=== PATIENT | male | born 1965 | race Hispanic/Latino ===

== ENCOUNTER 2020-03-22 11:55 | Inpatient (IN) | payer OTHER ==
[2020-03-22] MEDS ORDERED: FENTANYL CITR 100 MCG/2 ML ONE (15:41)
[2020-03-22] MEDS ORDERED: NA CHLORIDE 0.9% 1,000 ML ONE (15:41)
[2020-03-22 16:20] LABS: Absolute Lymphocytes (CBC) 1.1 K/uL (0.7-4.9); Basophils % 0.3 % (0-1.3); Hematocrit 44.2 % (39.6-49.0); Lymphocytes % 6.1 % (15.3-44.8); MPV 8.4 fL (7.6-11.3); RBC Red Blood Cell Count 4.98 M/uL (4.33-5.43)
[2020-03-22 16:32] LABS: BUN Blood Urea Nitrogen 11 mg/dL (7-18); Bicarbonate 27 mmol/L (21-32); Glucose Level 116 mg/dL (74-106); Potassium 4.1 mmol/L (3.5-5.1); Sodium Level 136 mmol/L (136-145)
--- NOTE | 2020-03-22 17:05 | RAD REPORT ---
EXAM DESCRIPTION: CT - Pelvis W/Cont - 03/22/2020 4:26 pm CLINICAL HISTORY: ABSCESS Rectal pain and swelling. COMPARISON: No comparisons TECHNIQUE: All CT scans are performed using dose optimization technique as appropriate and may inclu de automated exposure control or mA/KV adjustment according to patient size. FINDINGS: There is moderate inflammatory changes seen surrounding the rectum. Mild wall thickening a lso seen. Perirectal abscess is noted measuring 4.6 x 3.5 cm. This perirectal abscess is not seen to extend into the pelvic content. No bulky pelvic adenopathy, fr ee fluid collections or intrapelvic abscess. Bilateral hip arthroplasties. The appendix is normal. IMPRESSION: 4.6 x 3.5 cm perirectal abscess.
[2020-03-22] MEDS ORDERED: CLINDAMYCIN 600MG/D5W 600 MG/50 ML BAG IV ONE (17:44)
[2020-03-22] MEDS ORDERED: BUPIVACA 0.25%/EPI 0.0005%/PF 30 ML VIAL ONE (19:19)
[2020-03-22] MEDS ORDERED: Ringers Lactate 1,000 ML IV ONE (19:34)
[2020-03-22] MEDS ORDERED: PIPER/TAZO/NS 3.375gm 3.375 GM/100 ML BAG ONE (19:35)
[2020-03-22] MEDS ORDERED: MORPHINE 2 MG/ML SYR IV PRN ×2 (19:46→19:50)
[2020-03-22] MEDS ORDERED: ONDANSETRON 4 MG/2 ML VIAL IV PRN (19:46)
[2020-03-22] MEDS ORDERED: METRONIDAZOLE 500mg IVPB 500 MG/100 ML BAG IV ONE (19:49)
[2020-03-22] MEDS ORDERED: Levofloxacin500mg IV 500 MG/100 ML BAG IV ONE (19:49)
[2020-03-22] MEDS: NA CHLORIDE 0.9% 1,000 ML IV SCH (20:00)
[2020-03-22] MEDS: Levofloxacin500mg IV 500 MG/100 ML BAG IV SCH (20:00)
--- NOTE | 2020-03-22 20:27 | P.OP ---
Preoperative diagnosis: Perirectal abscess Postoperative diagnosis: Perirectal abscess Primary procedure: Exam under anesthesia Secondary procedure: Incision and drainage of perirectal abscess Anesthesia: GETA + Local Estimated blood loss: <20cc Specimen: Cultures Findings: Multilocluated 5cm abscess Complications: None Drain(s): Other (iodoform packing 1/2") Transferred to: Recovery Room Condition: Good
--- NOTE | 2020-03-22 21:17 | P.HP ---
Certification for Inpatient Patient admitted to: Inpatient With expected LOS: >2 Midnights Patient will require the following post-hospital care: None Practitioner: I am a practitioner with admitting privileges, knowledge of patient current condition, hospital course, and medical plan of care. Services: Services provided to patient in accordance with Admission requirements found in Title 42 Section 412.3 of the Code of Federal Regulations Patient History Date of Service: 03/22/20 Reason for admission: Rectal abscess History of Present Illness: Patient is a 54-year-old gentleman who came to the hospital with rectal pain. Patient was at the emergency room at [facility] for rectal pain, but patient's CT of the abdomen did not reveal any abnormality. However, patient's pain was not improving. Patient came to our ER and CT abdomen and pelvis revealed rectal abscess. Patient was taken to the OR by General surgery for incision and debridement of the abscess. Patient will need stool softener and IV antibiotic therapy. Will monitor blood pressure closely. Patient be admitted to our service for close evaluation. Allergies Penicillins Allergy (Intermediate, Verified 09/02/12 05:17) Rash Home Medications: Valsartan [Diovan] 320 mg PO DAILY 03/23/20 - Past Medical/Surgical History -: Hypertension -: Bilateral hip replacement - Family History Father Family History: Reviewed- Non-Contributory - Social History Smoking Status: Never smoker Alcohol use: No CD- Drugs: No Review of Systems 10-point ROS is otherwise unremarkable Physical Examination - Vital Signs Temperature: 99.5 F Blood Pressure: 116/59 Pulse: 85 Respirations: 19 Pulse Ox (%): 96 - Physical Exam General: Alert, In no apparent distress, Oriented x3 HEENT: Atraumatic, PERRLA, Mucous membr. moist/pink, EOMI, Sclerae nonicteric Neck: Supple, 2+ carotid pulse no bruit, No LAD, Without JVD or thyroid abnormality Respiratory: Clear to auscultation bilaterally, Normal air movement Cardiovascular: Regular rate/rhythm, Normal S1 S2, No murmurs Gastrointestinal: Normal bowel sounds, Soft and benign, Non-distended, No tenderness Musculoskeletal: No clubbing, No swelling, No tenderness Integumentary: No rashes Neurological: Normal gait, Normal speech, Normal strength at 5/5 x4 extr, Normal tone, Sensation intact, Cranial nerves 3-12 intact, Normal affect Lymphatics: No axilla or inguinal lymphadenopathy - Studies Laboratory Data (last 24 hrs) 03/22/20 15:46: Sodium 136, Potassium 4.1, BUN 11, Creatinine 0.86, Glucose 116 H 03/22/20 15:46: WBC 17.2 H, Hgb 14.9, Hct 44.2, Plt Count 255 Assessment & Plan - Problems (Diagnosis) (1) Rectal abscess Current Visit: Yes Status: Acute - Plan 1. Continue with IV hydration 2. Continue with IV antibiotics 3. Continue with pain control 4. NPO 5. General surgery consultation; patient to go to the operating room tonight for incision and debridement 6. Serial H&H, and we will monitor CBC, BMP, LFTs and lipase along with electrolytes. 7. GI and DVT prophylaxis Discharge Plan: Home Plan to discharge in: Greater than 2 days - Advance Directives Does patient have a Living Will: No Does patient have a Durable POA for Healthcare: No - Code Status/Comfort Care Code Status Assessed: Yes Code Status: Full Code Critical Care: No Time Spent Managing PTS Care (In Minutes): 45
[2020-03-22] MEDS: ACETAMINOPHEN 500 MG TAB PO PRN (22:14)
--- NOTE | 2020-03-22 23:37 | OP ---
Date of Procedure: 03/22/2020 Surgeon: Maverick Medina MD, Preoperative Diagnosis: Perirectal abscess. Postoperative Diagnosis: Perirectal abscess. Procedure Performed: 1.Exam under anesthesia. 2.Incision and drainage of perirectal abscess. Anesthesia: General endotracheal plus local. Estimated Blood Loss: Less than 20 mL. Specimen: Cultures. Findings: Multiloculated approximately 5 cm abscess in the posterior position. No communication to rectum appreciated. Complications: None. Drains: Half-inch iodoform packing placed. Disposition: Transferred to recovery room in good condition. Procedure In Detail: After informed consent was obtained, patient was brought to the operating room, prepped and draped in the usual sterile fashion in lithotomy position. After adequate anesthesia wa s achieved, I anesthetized the area of the posterior anal tissue extending in a radial direction off midline to the patient's left eye. I made an incision over this area and immediately encountered a l arge abscess. This was cultured for both aerobic and anaerobic speciation. It was found to be multi loculated on digital examination. A large volume amount of purulent material emanated from this and the abscess obviously tracked for approximately 5 cm superiorly along the rectal margin without any o bvious communication. After this was completely opened and irrigated, I inspected the rectal vault w ith rigid anoscopy using sequentially larger anal endoscopes. There was no communication evident thr oughout the procedure. I irrigated the rectal area and placed a piece of sterile Gel-Foam into the a nal canal. I then returned back to irrigate and inspect the incision and drainage site of the perire ctal abscess after it was noted to be completely cleaned and all abscess material was drained. Necro tic tissue was all removed. The wound was then packed with half-inch iodoform packing. A sterile dr essing was placed over top. Patient tolerated the procedure well without evidence of complication, t ransferred to PACU in good condition. All counts were correct at the end of the case. CHUNG/DURAN Voice ID: [id number] Report ID: [id number]
[2020-03-23 00:15] VITALS: BMI 33.6
[2020-03-23] MEDS: METRONIDAZOLE 500mg IVPB 500 MG/100 ML BAG IV SCH ×5 (00:15→23:52)
[2020-03-23] MEDS: NA CHLORIDE 0.9% 1,000 ML IV SCH ×3 (00:15→22:40)
--- NOTE | 2020-03-23 03:36 | ER ---
Nurse's Notes [facility] Name: Castillo Mccoy Age: 54 yrs Sex: Male : 1965 Arrival Date: 03/22/2020 Time: 11:58 Bed 28 Private MD: Diagnosis: Abscess of anal and rectal regions Presentation: 03/22 12:30 Chief complaint: Chief complaint: Patient states: Rectal pain x 1 week, went to [place] [id number] on Friday and they did an exam and CT, both were negative. Taking a shower today and I felt a bump on the left side of the rectum, Dr. Lopez said to come to the ER. Coronavirus screen: Proceed with normal triage. Patient denies a cough. Patient denies shortness of breath or difficulty breathing. Patient denies measured and/or subjective temperature greater than 100.4F prior to today's visit. Patient denies travel on a cruise ship or to a country the [facility] currently lists as an affected area. Patient denies contact with known and/or suspected case of COVID-19. Ebola Screen: No symptoms or risks identified at this time. Initial Sepsis Screen: Does the patient meet any 2 criteria? No. Patient's initial sepsis screen is negative. Does the patient have a suspected source of infection? No. Patient's initial sepsis screen is negative. Risk Assessment: Do you want to hurt yourself or someone else? Patient reports no desire to harm self or others. Onset of symptoms was March 17, 2020. Care prior to arrival: None. 12:30 Method Of Arrival: Ambulatory [facility] 12:30 Acuity: MIGUEL ANGEL 4 jl7 15:20 Acuity: MIGUEL ANGEL 3 Triage Assessment: 12:36 General: Appears in no apparent distress. uncomfortable, Behavior is calm, cooperative, jl7 appropriate for age. Pain: Complains of pain in gluteal cleft Pain currently is 8 out of 10 on a pain scale. Neuro: Level of Consciousness is awake, alert, obeys commands, Oriented to person, place, time, situation. Cardiovascular: Respiratory: Airway is patent Respiratory effort is even, unlabored, Respiratory pattern is regular, symmetrical. Derm: Skin is pink, warm \T\ dry. Reports possible abscess to left side of rectum. Historical: - Allergies: 12:36 PENICILLINS; jl7 - Home Meds: 12:36 valsartan 320 mg oral tab 1 tab once daily [Active]; jl7 - PMHx: 12:36 Hypertension; jl7 - PSHx: 12:36 Bilateral Hip replacement; right knee; jl7 - Immunization history:: Adult Immunizations not up to date. - Social history:: Smoking status: Patient reports the use of cigarette tobacco products, smokes one-half pack cigarettes per day. Screenin:00 Abuse screen: Denies threats or abuse. Denies injuries from another. Nutritional ls4 screening: No deficits noted. Tuberculosis screening: No symptoms or risk factors identified. Fall Risk None identified. Assessment: 15:00 Reassessment: Patient appears in no apparent distress at this time. Patient and/or ls4 family updated on plan of care and expected duration. Pain level reassessed. Patient is alert, oriented x 3, equal unlabored respirations, skin warm/dry/pink. 16:00 Reassessment: Patient appears in no apparent distress at this time. Patient and/or ls4 family updated on plan of care and expected duration. Pain level reassessed. Patient is alert, oriented x 3, equal unlabored respirations, skin warm/dry/pink. 17:00 Reassessment: Patient appears in no apparent distress at this time. Patient and/or ls4 family updated on plan of care and expected duration. Pain level reassessed. Patient is alert, oriented x 3, equal unlabored respirations, skin warm/dry/pink. Vital Signs: 12:30 BP 155 / 86; Pulse 104; Resp 17; Temp 98.9; Pulse Ox 100% ; Weight 108.86 kg; Pain 8/10;jl7 15:00 BP 138 / 77; Pulse 96; Resp 19; Temp 98.4(O); Pulse Ox 99% on R/A; Pain 3/10; ls4 16:00 BP 134 / 87; Pulse 98; Resp 17; Pulse Ox 99% on R/A; Pain 3/10; ls4 17:00 BP 139 / 86; Pulse 96; Resp 18; Pulse Ox 100% on R/A; Pain 3/10; ls4 ED Course: 11:58 Patient arrived in ED. ag5 12:35 Triage completed. jl7 12:36 Arm band placed on right wrist. jl7 14:00 No provider procedures requiring assistance completed. Patient maintains SpO2 ls4 saturation greater than 95% on room air. 14:36 Radha Gonzalez F[facility]-C [facility]. snw 14:36 Marcos Chavarria MD is Attending Physician. snw 14:40 Bita Jimenez, ELIANA is Primary Nurse. iw 15:29 Patient has correct armband on for positive identification. Bed in low position. Call mh5 light in reach. Warm blanket given. Pillow given. clinical research monitor on. Pulse ox on. NIBP on. 15:46 Initial lab(s) drawn, by me, sent to lab. First set of blood cultures drawn By , RAC. lt1 15:51 Warm blanket given. Pillow given. FOOT BOOTIES. mh5 15:53 Second set of blood cultures drawn By NIGEL monroe. lt1 15:55 Inserted saline lock: 20 gauge in right antecubital area, using aseptic technique. lt1 16:26 Pelvis W/Cont In Process Unspecified. EDMS 18:41 Maverick Medina MD is Hospitalizing Provider. snw 18:57 Brunilda Canales MD is Hospitalizing Provider. snw 20:21 Patient admitted, IV remains in place. ls4 Administered Medications: 15:45 Drug: fentaNYL (PF) 50 mcg Route: IVP; Site: right antecubital; ls4 16:15 Follow up: Response: No adverse reaction; Marked relief of symptoms ls4 15:49 Drug: NS 0.9% 1000 ml Route: IV; Rate: 125 ml/hr; Site: right antecubital; ls4 17:46 Drug: Clindamycin 600 mg Route: IVPB; Infused Over: 30 mins; Site: right antecubital; ls4 18:40 Follow up: Response: No adverse reaction; IV Status: Completed infusion; IV Intake: [id number] 19:36 Drug: Lactated Ringers Solution 1000 ml {Note: Telephone order,Dr Medina, repeated ls4 back and clarified. .} Route: IV; Rate: 150 ml/hr; Site: right antecubital; 20:20 Follow up: IV Status: Infusion continued upon admission ls4 19:40 CANCELLED (pt allergic): Zosyn 3.375 grams IVPB once over 60 mins; (mix in NS 100 mL) snw Intake: 18:40 IV: 50ml; Total: 50ml. ls4 Outcome: 18:42 Decision to Hospitalize by Provider. snw 20:20 Admitted to OR accompanied by nurse, accompanied by tech, via wheelchair, with chart, ls4 Report called to verbal report and sbar given to OR Nurse. 20:20 Condition: stable 20:20 Instructed on the need for admit, Demonstrated understanding of instructions, follow-up care, medications. 20:22 Patient left the ED. ls4 Signatures: Dispatcher [employer] EDKS Radha Gonzalez, JHONY-C REVENUE FIELD AGENT-Csnw Bita Jimenez, RN Bia Montanez 5 Pooja Sotelo RN RN jl7 Jennifer Jiménez RN RN ls4 Ida Harrington 5 Rupal Villarreal lt1 Corrections: (The following items were deleted from the chart) 19:38 19:35 Zosyn 3.375 grams IVPB in right antecubital over 60 mins ls4 ls4
--- NOTE | 2020-03-23 03:36 | EDPHYS ---
Physician Documentation [facility] Name: Castillo Mccoy Age: 54 yrs Sex: Male : 1965 Arrival Date: 03/22/2020 Time: 11:58 Bed 28 Private MD: ED Physician Marcos Chavarria HPI: 03/22 15:26 This 54 yrs old Male presents to ER via Ambulatory with complaints of Rectal snw Pain. 15:26 The patient presents to the emergency department with pain in the rectal area, that is snw severe. Onset: The symptoms/episode began/occurred 4 day(s) ago, and became persistent. Context: the patient has no known special context relating to the rectal area complaint(s). Associate signs and symptoms: The patient has no apparent associated signs or symptoms. The patient has not experienced similar symptoms in the past. The patient has been recently seen by a physician: Imelda, CT abdomen done, exam performed, no dx, called Dr. Lopez who looked at CT and told pt it was not his colon. Pt states he has been taking Flagyl, using Tucks, using Suppositories for inflammation and continues to have extreme pain. Historical: - Allergies: 12:36 PENICILLINS; jl7 - Home Meds: 12:36 valsartan 320 mg oral tab 1 tab once daily [Active]; jl7 - PMHx: 12:36 Hypertension; jl7 - PSHx: 12:36 Bilateral Hip replacement; right knee; jl7 - Immunization history:: Adult Immunizations not up to date. - Social history:: Smoking status: Patient reports the use of cigarette tobacco products, smokes one-half pack cigarettes per day. ROS: 15:26 Constitutional: Negative for fever, chills, and weight loss, Eyes: Negative for injury, snw pain, redness, and discharge, ENT: Negative for injury, pain, and discharge, Neck: Negative for injury, pain, and swelling, Cardiovascular: Negative for chest pain, palpitations, and edema, Respiratory: Negative for shortness of breath, cough, wheezing, and pleuritic chest pain, Abdomen/GI: Negative for abdominal pain, nausea, vomiting, diarrhea, and constipation, severe rectal pain Back: Negative for injury and pain, : Negative for injury, bleeding, discharge, and swelling, MS/Extremity: Negative for injury and deformity, Skin: Negative for injury, rash, and discoloration, Neuro: Negative for headache, weakness, numbness, tingling, and seizure. Exam: 15:25 Constitutional: This is a well developed, well nourished patient who is awake, alert, snw and in no acute distress. Head/Face: Normocephalic, atraumatic. Eyes: Pupils equal round and reactive to light, extra-ocular motions intact. Lids and lashes normal. Conjunctiva and sclera are non-icteric and not injected. Cornea within normal limits. Periorbital areas with no swelling, redness, or edema. ENT: Nares patent. No nasal discharge, no septal abnormalities noted. Tympanic membranes are normal and external auditory canals are clear. Oropharynx with no redness, swelling, or masses, exudates, or evidence of obstruction, uvula midline. Mucous membranes moist. Neck: Trachea midline, no thyromegaly or masses palpated, and no cervical lymphadenopathy. Supple, full range of motion without nuchal rigidity, or vertebral point tenderness. No Meningismus. Chest/axilla: Normal chest wall appearance and motion. Nontender with no deformity. No lesions are appreciated. Cardiovascular: Regular rate and rhythm with a normal S1 and S2. No gallops, murmurs, or rubs. Normal PMI, no JVD. No pulse deficits. Respiratory: Lungs have equal breath sounds bilaterally, clear to auscultation and percussion. No rales, rhonchi or wheezes noted. No increased work of breathing, no retractions or nasal flaring. Abdomen/GI: Soft, non-tender, with normal bowel sounds. No distension or tympany. No guarding or rebound. No evidence of tenderness throughout. left significant perirectal tenderness, guaiac negative Back: No spinal tenderness. No costovertebral tenderness. Full range of motion. Skin: Warm, dry with normal turgor. Normal color with no rashes, no lesions, and no evidence of cellulitis. MS/ Extremity: Pulses equal, no cyanosis. Neurovascular intact. Full, normal range of motion. Neuro: Awake and alert, GCS 15, oriented to person, place, time, and situation. Cranial nerves II-XII grossly intact. Motor strength 5/5 in all extremities. Sensory grossly intact. Cerebellar exam normal. Normal gait. Psych: Awake, alert, with orientation to person, place and time. Behavior, mood, and affect are within normal limits. Vital Signs: 12:30 BP 155 / 86; Pulse 104; Resp 17; Temp 98.9; Pulse Ox 100% ; Weight 108.86 kg; Pain 8/10;jl7 15:00 BP 138 / 77; Pulse 96; Resp 19; Temp 98.4(O); Pulse Ox 99% on R/A; Pain 3/10; ls4 16:00 BP 134 / 87; Pulse 98; Resp 17; Pulse Ox 99% on R/A; Pain 3/10; ls4 17:00 BP 139 / 86; Pulse 96; Resp 18; Pulse Ox 100% on R/A; Pain 3/10; ls4 MDM: 14:40 Patient medically screened. snw 17:20 Differential diagnosis: hemorrhoids, fissure, abscess. Data reviewed: vital signs, snw nurses notes. Data interpreted: Pulse oximetry: on room air is 100 %. Interpretation: normal. Counseling: I had a detailed discussion with the patient and/or guardian regarding: the historical points, exam findings, and any diagnostic results supporting the discharge/admit diagnosis, the presence of at least one elevated blood pressure reading (>120/80) during this emergency department visit, lab results, radiology results, the need for further work-up and treatment in the hospital. Physician consultation: Maverick Medina MD was called at 17:20, regarding admission, patient's condition. 18:57 Physician consultation: Brunilda Canales MD was called at 18:58, was contacted at 18:58, snw regarding admission, to the medical/surgical unit. 03/22 15:17 Order name: CBC with Diff snw 03/22 15:17 Order name: Chem 7 snw 03/22 15:17 Order name: Blood Culture Adult (2) snw 03/22 15:17 Order name: ESR snw 03/22 16:12 Order name: Basic Metabolic Panel; Complete Time: 16:37 EDMS 03/22 16:12 Order name: CBC with Automated Diff; Complete Time: 16:51 EDMS 03/22 15:17 Order name: CT Pelvis w cont snw 03/22 16:09 Order name: Pelvis W/Cont; Complete Time: 17:18 EDMS 03/22 16:12 Order name: Sedimentation Rate, Berniceren; Complete Time: 16:51 EDDC 03/22 16:12 Order name: Blood Culture [facility] 03/22 16:17 Order name: Blood Culture [facility] 03/22 18:10 Order name: Chest Single View XRAY [facility] 03/22 17:43 Order name: NPO; Complete Time: 17:46 snw 03/22 18:10 Order name: EKG; Complete Time: 03:54 snw 03/22 18:10 Order name: EKG - Nurse/Tech; Complete Time: 18:40 snw Administered Medications: 15:45 Drug: fentaNYL (PF) 50 mcg Route: IVP; Site: right antecubital; ls4 16:15 Follow up: Response: No adverse reaction; Marked relief of symptoms ls4 15:49 Drug: NS 0.9% 1000 ml Route: IV; Rate: 125 ml/hr; Site: right antecubital; ls4 17:46 Drug: Clindamycin 600 mg Route: IVPB; Infused Over: 30 mins; Site: right antecubital; ls4 18:40 Follow up: Response: No adverse reaction; IV Status: Completed infusion; IV Intake: [id number] 19:36 Drug: Lactated Ringers Solution 1000 ml {Note: Telephone order,Dr Medina, repeated ls4 back and clarified. .} Route: IV; Rate: 150 ml/hr; Site: right antecubital; 20:20 Follow up: IV Status: Infusion continued upon admission ls4 19:40 CANCELLED (pt allergic): Zosyn 3.375 grams IVPB once over 60 mins; (mix in NS 100 mL) snw Disposition: 03/23 08:19 Co-signature as Attending Physician, aMrcos Chavarria MD I agree with the assessment and kdr plan of care. Disposition: 03/22/20 18:42 Hospitalization ordered by Brunilda Canales for Inpatient Admission. Preliminary diagnosis is Abscess of anal and rectal regions. - Bed requested for Operating Room. - Status is Inpatient Admission. ls4 - Condition is Stable. - Problem is an acute exacerbation. - Symptoms have worsened. Signatures: Dispatcher [employer] Marcos Flores MD MD kdr Therrien, Shelly, CAR REPAIRER PULLMAN-C CAR REPAIRER PULLMAN-Csnw Pooja Sotelo RN RN jl7 Jennifer Jiménez, RN RN ls4 Corrections: (The following items were deleted from the chart) 03/22 16:11 16:09 Pelvis W/Cont ordered. EDMS EDMS 18:57 18:42 Hospitalization Ordered by Maverick Medina MD for Inpatient Admission. Preliminary snw diagnosis is Abscess of anal and rectal regions. Bed requested for Operating Room. Status is Inpatient Admission. Condition is Stable. Problem is an acute exacerbation. Symptoms have worsened. snw 19:40 19:34 Zosyn 3.375 grams IVPB once over 60 mins; (mix in NS 100 mL) ordered. ls4 snw 19:40 19:35 Zosyn 3.375 grams IVPB once over 60 mins; (mix in NS 100 mL) given. ls4 snw 19:40 19:38 Zosyn 3.375 grams IVPB once over 60 mins; (mix in NS 100 mL) ordered. ls4 snw 20:22 18:57 03/22/2020 18:42 Hospitalization Ordered by Brunilda Canales MD for Inpatient ls4 Admission. Preliminary diagnosis is Abscess of anal and rectal regions. Bed requested for Operating Room. Status is Inpatient Admission. Condition is Stable. Problem is an acute exacerbation. Symptoms have worsened. snw
[2020-03-23 04:27] LABS: Absolute Lymphocytes (CBC) 1.7 K/uL (0.7-4.9); Basophils % 0.2 % (0-1.3); Hematocrit 40.3 % (39.6-49.0); Lymphocytes % 10.3 % (15.3-44.8); MPV 8.5 fL (7.6-11.3); RBC Red Blood Cell Count 4.52 M/uL (4.33-5.43)
[2020-03-23 04:48] LABS: Protime INR 1.31
[2020-03-23 05:01] LABS: Bilirubin Total 0.5 mg/dL (0.2-1.0); Potassium 3.7 mmol/L (3.5-5.1); Protein, Total 6.5 g/dL (6.4-8.2)
[2020-03-23] MEDS ORDERED: MORPHINE 4 MG/ML SYR IV PRN (07:58)
--- NOTE | 2020-03-23 08:19 | P.PN ---
Subjective Date of Service: 03/23/20 Subjective: Improving (Patient doing well. Willing to go home over the next 24- 48 hr. Will discuss with General surgery.) Review of Systems 10-point ROS is otherwise unremarkable Physical Examination - Vital Signs Temperature: 99.5 F Blood Pressure: 116/59 Pulse: 85 Respirations: 19 Pulse Ox (%): 96 - Physical Exam General: Alert, In no apparent distress, Oriented x3 Respiratory: Clear to auscultation bilaterally, Normal air movement Cardiovascular: Regular rate/rhythm, Normal S1 S2, No murmurs Gastrointestinal: Normal bowel sounds, Soft and benign, Non-distended, No te nderness Musculoskeletal: No clubbing, No swelling, No tenderness Integumentary: No rashes - Studies Laboratory Data (last 24 hrs) 03/22/20 15:46: Sodium 136, Potassium 4.1, BUN 11, Creatinine 0.86, Glucose 116 H 03/22/20 15:46: WBC 17.2 H, Hgb 14.9, Hct 44.2, Plt Count 255 03/22/20 15:17: Sodium Cancelled, Potassium Cancelled, BUN Cancelled, Creatinine Cancelled, Glucose Cancelled 03/22/20 15:17: WBC Cancelled, Hgb Cancelled, Hct Cancelled, Plt Count Cancelled Medications List Reviewed: Yes Assessment & Plan - Problems (Diagnosis) (1) Rectal abscess Current Visit: Yes Status: Acute - Plan 1. Continue with IV hydration 2. Continue with IV antibiotics 3. Continue with pain control 4. NPO 5. General surgery consultation; patient to go to the operating room tonight for incision and debridement 6. Serial H&H, and we will monitor CBC, BMP, LFTs and lipase along with electrolytes. 7. GI and DVT prophylaxis Discharge Plan: Home Plan to discharge in: 48 Hours - Advance Directives Does patient have a Living Will: No Does patient have a Durable POA for Healthcare: No - Code Status/Comfort Care Code Status: Full Code Critical Care: No Time Spent Managing PTS Care (In Minutes): 35
[2020-03-23] MEDS: DOCUSATE NA 100 MG CAP PO SCH ×2 (08:47→20:48)
--- NOTE | 2020-03-23 10:53 | P.PN ---
Subjective Date of Service: 03/23/20 Primary Care Provider: None Chief Complaint: Rectal abscess Subjective: No new changes, Tolerating diet, Doing well Patient states pain is greatly improved today. Denies chills or malaise. <Robin Fall - Last Filed: 03/23/20 10:46> Date of Service: 03/23/20 Subjective: Other (Patient seen and examined with nurse practitioner) <Yaakov Castro - Last Filed: 03/23/20 17:17> Review of Systems General: Unremarkable Eyes: Unremarkable ENT: Unremarkable Respiratory: Unremarkable Cardiovascular: Unremarkable Gastrointestinal: Unremarkable Genitourinary: Unremarkable Musculoskeletal: Unremarkable Integumentary: As per HPI Neurological: Unremarkable <Robin Fall - Last Filed: 03/23/20 10:46> Physical Examination - Vital Signs Temperature: 99.5 F Blood Pressure: 116/59 Pulse: 85 Respirations: 19 Pulse Ox (%): 96 - Physical Exam General: Alert, In no apparent distress, Oriented x3 HEENT: Atraumatic, Normocephalic, Other Neck: Supple Respiratory: Clear to auscultation bilaterally, Normal air movement Cardiovascular: No edema, Normal pulses Capillary refill: <2 Seconds Gastrointestinal: Normal bowel sounds, Soft and benign Musculoskeletal: No swelling, No contractures Integumentary: No rashes Neurological: Normal gait, Normal speech - Studies Laboratory Data (last 24 hrs) 03/22/20 15:46: Sodium 136, Potassium 4.1, BUN 11, Creatinine 0.86, Glucose 116 H 03/22/20 15:46: WBC 17.2 H, Hgb 14.9, Hct 44.2, Plt Count 255 03/22/20 15:17: Sodium Cancelled, Potassium Cancelled, BUN Cancelled, Creatinine Cancelled, Glucose Cancelled 03/22/20 15:17: WBC Cancelled, Hgb Cancelled, Hct Cancelled, Plt Count Cancelled Medications List Reviewed: Yes <Robin Fall - Last Filed: 03/23/20 10:46> - Physical Exam Other Physical/Emotional Findings: Agree with physical exam with nurse practitioner - Studies Laboratory Data (last 24 hrs) 03/22/20 15:17: Sodium Cancelled, Potassium Cancelled, BUN Cancelled, Creatinine Cancelled, Glucose Cancelled 03/22/20 15:17: WBC Cancelled, Hgb Cancelled, Hct Cancelled, Plt Count Cancelled Medications List Reviewed: Yes <Yaakov Castro - Last Filed: 03/23/20 17:17> Assessment & Plan Discharge Plan: Home Plan to discharge in: 24 Hours Physician Review Additional Text: Assessment Rectal abscess Hypertension Plan Rectal abscess- patient to continue to receive IV antibiotics,IV hydration, and pain control. Patient had surgical incision and drainage of the rectal abscess yesterday with surgery. Patient seems to be doing very well today. Discussed case with surgery who states that the abscess was very large and he would prefer to keep in the hospital 1 more day for IV antibiotics and serial labs. Patient no longer NPO, is tolerating his diet. Plan is to discharge patient tomorrow after cleared by surgery. Patient states his mother is a retired nurse and should be able to help him with his wound care and packing. DVT prophylaxis continued. Hypertension- will continue patient's home medication valsartan. Blood pressure remained stable throughout this hospitalization. Will continue to monitor. Time Spent Managing Pts Care (In Minutes): 55 <Robin Fall - Last Filed: 03/23/20 10:46> Discharge Plan: Home Plan to discharge in: 24 Hours Physician Review Additional Text: Patient seen and examined with nurse practitioner. Agree with plan of care. Case discussed with surgery. Surgery desires patient to be remain in the hospital for at least 1 more day with IV antibiotic therapy. Anticipate home discharge tomorrow. <Yaakov Castro - Last Filed: 03/23/20 17:17>
[2020-03-23] MEDS ORDERED: ENOXAPARIN 40 MG/0.4 ML SQ ONE (10:55)
[2020-03-23] MEDS: ACETAMINOPHEN 500 MG TAB PO PRN (12:24)
[2020-03-23] MEDS: VALSARTAN 160 MG TAB PO SCH (12:24)
--- NOTE | 2020-03-23 13:00 | EKG ---
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
--- NOTE | 2020-03-23 15:36 | P.PN ---
Subjective Date of Service: 03/23/20 Primary Care Provider: None Chief Complaint: Rectal abscess Subjective: Improving Physical Examination - Vital Signs Temperature: 99.6 F Blood Pressure: 122/63 Pulse: 75 Respirations: 18 Pulse Ox (%): 94 - Physical Exam General: Alert, In no apparent distress Gastrointestinal: Soft and benign, Other (rectal: tender to palpation, minimal drainage on packing in perianal wound) - Studies Laboratory Data (last 24 hrs) 03/22/20 15:46: Sodium 136, Potassium 4.1, BUN 11, Creatinine 0.86, Glucose 116 H 03/22/20 15:46: WBC 17.2 H, Hgb 14.9, Hct 44.2, Plt Count 255 03/22/20 15:17: Sodium Cancelled, Potassium Cancelled, BUN Cancelled, Creatinine Cancelled, Glucose Cancelled 03/22/20 15:17: WBC Cancelled, Hgb Cancelled, Hct Cancelled, Plt Count Cancelled Medications List Reviewed: Yes Assessment And Plan - Current Problems (Diagnosis) (1) Rectal abscess Current Visit: Yes Status: Acute Plan: - serial exams - antibiotics - medical management - daily dressing changes / sitz baths Physician Review Additional Text: Assessment Rectal abscess Hypertension Plan Rectal abscess- patient to continue to receive IV antibiotics,IV hydration, and pain control. Patient had surgical incision and drainage of the rectal abscess yesterday with surgery. Patient seems to be doing very well today. Discussed case with surgery who states that the abscess was very large and he would prefer to keep in the hospital 1 more day for IV antibiotics and serial labs. Patient no longer NPO, is tolerating his diet. Plan is to discharge patient tomorrow after cleared by surgery. Patient states his mother is a retired nurse and should be able to help him with his wound care and packing. DVT prophylaxis continued. Hypertension- will continue patient's home medication valsartan. Blood pressure remained stable throughout this hospitalization. Will continue to monitor.
--- NOTE | 2020-03-23 20:02 | CON ---
Date of Consultation: 03/22/2020 Brief History Of Present Illness: Patient is a 54-year-old gentleman who comes to the hospital with rectal pain beginning approximately 1 week ago on Friday. He stated he had some pain in the area. He went to [facility], had a CT scan and a significant workup and he was instructed he should follow up with a primary care doctor, given antibiotics or go immediately to an ER as soon as possible. He came to the emergency room with worsening symptoms after several days of this progressively getting w orse and more tender and ability to go to the bathroom and has significant pain, some chills, fever s ubjectively and as such, he was worried and came to the ER with the above-stated complaints. In mk tion, he states the tenderness got significantly worse in the perianal area, particularly near his ta ilbone. He had been using stool softeners prior to this without significant improvement. Past Medical History: Significant for hypertension. Past Surgical History: He has had bilateral hip replacement, rotator cuff repair. Allergies: TO PENICILLIN. Home Medications: Include valsartan. Family History: Reviewed, noncontributory. Social History: He has a 7-pack year history of smoking. Denies alcohol or recreational drug use. Review of Systems: 10-point review of systems other than HPI, denies. Physical Examination: Vital Signs: At the time of examination, his BMI is 33.6. His blood pressure was 116/59, pulse 85, respiratory rate 19, temperature 99.4. General: He is awake, alert, and oriented. Psychiatric: Appropriate, conversive. HEENT: Normocephalic. Sclerae icteric. Mucous membranes are moist. Oropharynx clear. Neck: Supple. No JVD. Chest: Normal expansion and excursion. Cardiovascular: Regular rate and rhythm. Pulmonary: Clear to auscultation bilaterally. Abdomen: Soft, nontender, nondistended. Rectal: Focused examination of the rectal area shows a fluctuant area consistent with a perianal/per irectal abscess. Tenderness around the anus as well is evident. Patient is unable to tolerate recta l examination at this point due to significant pain. Extremities: No clubbing, cyanosis, edema. Skin: Warm and dry. Laboratory Data: Reveals a white blood cell count of 17.2, hemoglobin is 14.9, hematocrit of 44.2, p latelet count is 255, neutrophils 84%. His sodium is 136, potassium 4.1, chloride 103, carbon dioxid e 27, BUN 11, creatinine 0.8, glucose is 116, calcium 9.0. His procalcitonin was 0.43. He had a CT scan performed of the abdomen and pelvis officially read as a 4.6 x 3.5 cm perirectal abscess. Assessment And Plan: This is a 54-year-old male who presents with signs and symptoms of perirectal a bscess. 1.IV fluid hydration. 2.Antibiotic coverage. 3.I explained risks, benefits, and alternatives of incision and drainage, and exam under anesthesia including, but not limited to bleeding, infection, damage to surrounding tissues and contents, need f or further operation and procedures, the patient agrees to proceed as indicated. CHUNG/DURAN Voice ID: [id number] Report ID: [id number]
[2020-03-23] MEDS ORDERED: TRAMADOL HCL 50 MG TAB PO PRN (20:39)
[2020-03-23] MEDS: Levofloxacin500mg IV 500 MG/100 ML BAG IV SCH (20:47)
[2020-03-23] MEDS ORDERED: HYDROMORPHONE HCL 1 MG/ML INJ IV PRN (23:27)
[2020-03-24 02:37] VITALS: O2SAT 96
[2020-03-24] MEDS: METRONIDAZOLE 500mg IVPB 500 MG/100 ML BAG IV SCH ×2 (05:06→11:35)
[2020-03-24 05:11] LABS: Absolute Lymphocytes (CBC) 1.5 K/uL (0.7-4.9); Basophils % 0.4 % (0-1.3); Hematocrit 40.9 % (39.6-49.0); Lymphocytes % 16.6 % (15.3-44.8); MPV 8.3 fL (7.6-11.3); RBC Red Blood Cell Count 4.67 M/uL (4.33-5.43)
[2020-03-24 05:20] LABS: BUN Blood Urea Nitrogen 10 mg/dL (7-18); Bicarbonate 24 mmol/L (21-32); Glucose Level 110 mg/dL (74-106); Potassium 4.1 mmol/L (3.5-5.1); Sodium Level 139 mmol/L (136-145)
--- NOTE | 2020-03-24 08:58 | P.DS ---
Discharge Date: 03/24/20 Primary Care Provider: None Disposition: ROUTINE DISCHARGE Discharge Condition: GOOD Reason for Admission: Rectal abscess Consultations: General surgery - Problems (1) Rectal abscess Current Visit: Yes Status: Acute Brief History of Present Illness: Patient is a 54-year-old gentleman who came to the hospital with rectal pain. Patient was at the emergency room at [facility] for rectal pain, but patient's CT of the abdomen did not reveal any abnormality. However, patient's pain was not improving. Patient came to our ER and CT abdomen and pelvis revealed rectal abscess. Patient was taken to the OR by General surgery for incision and debridement of the abscess. Patient will need stool softener and IV antibiotic therapy. Will monitor blood pressure closely. Patient be admitted to our service for close evaluation. Hospital Course: Patient had an incision and debridement of his rectal abscess. Patient did well during his hospital stay. Patient was given antibiotic therapy. Patient is doing well and his pain is well controlled. Patient has been shown how to do his dressing changes. At this time, patient is stable for discharge with outpatient follow-up with surgery. Vital Signs/Physical Exam: Temp Pulse Resp BP Pulse Ox 99.5 F 85 19 116/59 L 96 03/24/20 08:56 03/24/20 08:56 03/24/20 08:56 03/24/20 08:56 03/24/20 08:56 General: Alert, In no apparent distress, Oriented x3 Other Physical/Emotional Findings: Agree with physical exam with nurse practitioner Laboratory Data at Discharge: WBC 8.9 K/uL (4.3-10.9) D 03/24/20 04:10 Hgb 13.9 g/dL (13.6-17.9) 03/24/20 04:10 Hct 40.9 % (39.6-49.0) 03/24/20 04:10 Plt Count 254 K/uL (152-406) 03/24/20 04:10 PT 15.4 SECONDS (9.5-12.5) H 03/23/20 03:35 INR 1.31 03/23/20 03:35 APTT 29.8 SECONDS (24.3-36.9) 03/23/20 03:35 Sodium 139 mmol/L (136-145) 03/24/20 04:10 Potassium 4.1 mmol/L (3.5-5.1) 03/24/20 04:10 BUN 10 mg/dL (7-18) 03/24/20 04:10 Creatinine 0.71 mg/dL (0.55-1.3) 03/24/20 04:10 Glucose 110 mg/dL (74-106) H 03/24/20 04:10 Total Bilirubin 0.5 mg/dL (0.2-1.0) 03/23/20 03:35 AST 10 U/L (15-37) L 03/23/20 03:35 ALT 22 U/L (12-78) 03/23/20 03:35 Alkaline Phosphatase 67 U/L (45-117) 03/23/20 03:35 Home Medications: Valsartan [Diovan] 320 mg PO DAILY 03/23/20 Docusate [Colace Cap*] 100 mg PO BID #60 cap 03/24/20 levoFLOXacin [Levaquin] 500 mg PO DAILY #5 tab 03/24/20 metroNIDAZOLE [Flagyl] 500 mg PO Q8H #30 tablet 03/24/20 traMADol HCL [Ultram*] 50 mg PO Q6H PRN #30 tab 03/24/20 New Medications: Docusate [Colace Cap*] 100 mg PO BID #60 cap metroNIDAZOLE [Flagyl] 500 mg PO Q8H #30 tablet levoFLOXacin [Levaquin] 500 mg PO DAILY #5 tab traMADol HCL [Ultram*] 50 mg PO Q6H PRN #30 tab PRN Reason: Pain Scale 2-4 (Mild) Patient Discharge Instructions: OK TO DC IV AND DC HOME. FOLLOW-UP WITH PRIMARY CARE PROVIDER IN 1-2 WEEKS. FOLLOW-UP WITH SURGERY IN 1-2 WEEKS. RETURN TO THE ER IF symptoms worsen. CALL or TEXT DR. CANTU AT [phone] IF ANY QUESTIONS REGARDING HOSPITAL STAY. PLEASE CALL THE FLOOR AT [phone] IF ANY MEDICATION OR NURSING QUESTIONS. Diet: Regular Activity: Fall precautions Time spent managing pt's care (in minutes): 35
[2020-03-24] MEDS: DOCUSATE NA 100 MG CAP PO SCH (09:00)
[2020-03-24] MEDS: VALSARTAN 160 MG TAB PO SCH (09:47)
[2020-03-24] MEDS: NA CHLORIDE 0.9% 1,000 ML IV SCH (09:50)
[2020-03-24 12:44] VITALS: BP 136/64; TEMP 97.6
== END 2020-03-24 14:11 | disposition home or self-care (01) | DRG 395 ==
LOC: ER 11:55 → ERHOLD 19:47 → 2ND 20:52
PROVIDERS: ADMIT Hospitalist; ATTEND Hospitalist
PROC: 0D9P3ZZ Drainage of Rectum, Percutaneous Approach (ICD-10-PCS; principal; 2020-03-22 19:50)
DX: K61.1 Rectal abscess (principal); I10 Essential (primary) hypertension; Z96.643 Presence of artificial hip joint, bilateral; Z79.890 Hormone replacement therapy; Z79.899 Other long term (current) drug therapy; Z87.891 Personal history of nicotine dependence; Z88.0 Allergy status to penicillin; Z96.651 Presence of right artificial knee joint
CPT/HCPCS: 36415; 72193; 80048; 80053; 84145; 85025; 85610; 85652; 85730; 87040; 87070; 87075; 87077; 87186; 87205; 93005; 96361; 96365; 96375; 99285; J1170; J1650; J2543; J3010; J7030; J7120; Q9967